=== PATIENT | female | born 2005 | race African-American/Black ===

== ENCOUNTER 2024-06-29 00:22 | Emergency (ER) | payer SELFPAY ==
[~2024-06-29] VITALS: Ht 157.5 cm; Wt 55.0 kg
[2024-06-29 00:30] VITALS: TEMP 98.7; O2SAT 100
[2024-06-29 00:48] LABS: BASOPHILS % 0.9 % (0.0-2.0); EOSINOPHILS % 3.3 % (0.0-5.0); HEMATOCRIT. 37.7 % (36.0-48.0); HEMOGLOBIN. 12.5 g/dL (12.0-16.0); LYMPHOCYTES % 40.9 % (20.0-50.0); MEAN CORPUSCULAR HEMOGLOBIN 29.2 pg (28.0-32.0); MEAN CORPUSCULAR HGB CONC 33.3 g/dL (31.0-37.0); MEAN CORPUSCULAR VOLUME 87.7 fL (81.0-99.0); MEAN PLATELET VOLUME 8.8 fl (7.4-10.4); MONOCYTES % 6.2 % (2.0-8.0); NEUTROPHILS % 48.7 % (40.0-76.0); PLATELET 263 x1000/uL (130-400); RED CELL DISTRIBUTION WIDTH 12.7 % (11.6-14.6); WHITE BLOOD COUNT 6.2 x1000/uL (4.5-11.0)
[2024-06-29 00:56] LABS: CHLORIDE 106 mEq/L (98-107); SODIUM 138 mEq/L (136-145)
[2024-06-29 00:57] LABS: CALCIUM 9.7 mg/dL (8.7-10.4); CARBON DIOXIDE 24 mEq/L (21-32)
[2024-06-29 01:02] LABS: CREATININE 0.8 mg/dL (0.6-1.0); GLUCOSE 111 mg/dL (70-105); UREA NITROGEN BLOOD 8 mg/dL (9-23)
[2024-06-29 01:31] LABS: POTASSIUM 2.8 mEq/L (3.5-5.1)
[2024-06-29 01:32] LABS: TROPONIN I HIGH SENSITIVITY < 4 ng/L (3.0-34)
[2024-06-29] MEDS: POTASSIUM CHLORIDE 20MEQ TABLET SR PO ONE (03:15)
[2024-06-29 03:32] LABS: D-DIMER < 0.19 mg/L FEU (<0.50); PARTIAL THROMBOPLASTIN TIME 25.2 sec (23.4-31.0); PROTHROMBIN TIME 11.5 sec (9.6-11.0)
[2024-06-29 03:37] LABS: THYROID STIMULATING HORMONE 4.43 uIU/mL (0.55-4.78)
[2024-06-29 04:01] LABS: HCG SCREEN NEGATIVE
[2024-06-29] MEDS ORDERED: POTA-205 MT (04:12)
[2024-06-29 04:32] VITALS: BP 118/72; PULSE 86; RESP 14; O2SAT 98
== END 2024-06-29 04:34 | disposition home or self-care (01) ==
LOC: ER 00:37
DX: R00.2 Palpitations (principal); F17.200 Nicotine dependence, unspecified, uncomplicated
CPT/HCPCS: 36415; 71045; 80048; 84443; 84484; 84703; 85025; 85379; 93005; 99285

== ENCOUNTER 2024-09-09 18:19 | Emergency (ER) | payer OTHER ==
[~2024-09-09] VITALS: Ht 157.5 cm; Wt 52.2 kg
[~2024-09-09 18:19] MED LIST: POTA-205 MT
[2024-09-09 18:29] VITALS: O2SAT 100
[2024-09-09] MEDS ORDERED: NAPR-1176 MT (21:28)
[2024-09-09] MEDS: KETOROLAC 15MG/ML VIAL IM ONE (21:30)
[2024-09-09 22:12] VITALS: BP 126/77; PULSE 80; RESP 20; TEMP 36.78072; O2SAT 100
== END 2024-09-09 22:15 | disposition home or self-care (01) ==
LOC: ER 18:19
DX: R00.2 Palpitations (principal); R07.89 Other chest pain; Z79.1 Long term (current) use of non-steroidal anti-inflammatories (NSAID)
CPT/HCPCS: 99283; 71045; 81025; 93005; 96372; J1885